=== PATIENT | female | born 1955 | race Two or more races ===

== ENCOUNTER 2021-07-31 09:05 | Outpatient (CLI) | payer OTHER | END 2021-07-31 17:06 | disposition home or self-care (01) | LOC: PPH VACUNA 09:05 | PROVIDERS: ATTEND Emergency Medicine Pediatric Emergency Medicine | DX: Z23 Encounter for immunization (principal) ==

== ENCOUNTER 2022-02-12 10:00 | Outpatient (CLI) | payer OTHER | END 2022-02-12 10:15 | disposition home or self-care (01) | LOC: PPH VACUNA 10:00 | PROVIDERS: ATTEND Emergency Medicine Pediatric Emergency Medicine | DX: Z23 Encounter for immunization (principal) ==

== ENCOUNTER 2022-12-06 07:58 | Outpatient (CLI) | payer OTHER | END 2022-12-06 08:04 | disposition home or self-care (01) | LOC: TOM 07:58 | PROVIDERS: ATTEND Internal Medicine | DX: C50.211 Malignant neoplasm of upper-inner quadrant of right female breast (principal) ==

== ENCOUNTER 2022-12-26 10:42 | Outpatient (CLI) | payer OTHER | END 2022-12-26 10:43 | disposition home or self-care (01) | LOC: NUCLEAR 10:42 | PROVIDERS: ATTEND Internal Medicine | DX: C50.211 Malignant neoplasm of upper-inner quadrant of right female breast (principal) | CPT/HCPCS: 78306; 78803; A9503 ==

== ENCOUNTER 2023-04-04 06:09 | Day surgery (SDC) | payer OTHER ==
[~2023-04-04] VITALS: Ht 154.9 cm; Wt 65.8 kg
[~2023-04-04 06:09] MED LIST: CANDESARTAN CILE8 MG PO; LIPIT PO; METFOR PO
== END 2023-04-04 15:00 | disposition home or self-care (01) ==
LOC: CIR.AMB 06:09
PROVIDERS: ATTEND Surgery
DX: C50.211 Malignant neoplasm of upper-inner quadrant of right female breast (principal); C77.9 Secondary and unspecified malignant neoplasm of lymph node, unspecified; Z20.822 Contact with and (suspected) exposure to COVID-19; D68.9 Coagulation defect, unspecified; E04.1 Nontoxic single thyroid nodule; E78.00 Pure hypercholesterolemia, unspecified; I10 Essential (primary) hypertension; D64.9 Anemia, unspecified; Z88.2 Allergy status to sulfonamides
CPT/HCPCS: 19301; 38525; A9541

== ENCOUNTER 2024-08-20 07:26 | Outpatient (CLI) | payer OTHER | END 2024-08-20 07:30 | disposition home or self-care (01) | LOC: NUCLEAR 07:26 | PROVIDERS: ATTEND Internal Medicine | DX: C78.7 Secondary malignant neoplasm of liver and intrahepatic bile duct (principal); C79.51 Secondary malignant neoplasm of bone; C50.211 Malignant neoplasm of upper-inner quadrant of right female breast | CPT/HCPCS: 78816; A9552 ==